=== PATIENT | female | born 1960 | race Caucasian/White ===

== ENCOUNTER 2017-10-10 00:16 | Inpatient (IN) | payer OTHER ==
[2017-10-10] VITALS (8 sets, daily range): BP systolic 138–207; BP diastolic 55–89
[~2017-10-10] VITALS: Ht 175.3 cm; Wt 106.1 kg
[~2017-10-10 00:16] MED LIST: ACETAMINOPHEN325 M1 PO; AMOXICILLIN875 MG PO; AVELOX 400 MG400 MG PO; CARAFATE 1 GM TA1 G1 PO; CIPROFLOXACIN500 M3 PO; CLEOCIN HCL150 MG PO; FLAGYL500 MG PO; IRON PO; LEXAPRO20 MG PO; LISINOPRIL10 MG PO; MYLANTA 12 OZ355 M1 PO; NEXIUM PO; NORCO 5-325 TA1 EAC1 PO; OMEPRAZOLE20 M2 PO; ZANTAC 150MG T150 M1 PO
[2017-10-10] MEDS ORDERED: LEXAPRO20 MG PO (00:24)
[2017-10-10 00:40] LABS: ABSOLUTE BASOPHILS 0.1 thou/uL (0.0-0.2); ABSOLUTE EOSINOPHILS 0.2 thou/uL (0.0-0.7); ABSOLUTE MONOCYTES 0.6 thou/uL (0.0-1.2); ABSOLUTE NEUTROPHILS 5.2 thou/uL (1.6-8.1); BASOPHILS 0.6 %; EOSINOPHILS 1.9 %; HEMATOCRIT 41.9 % (37.0-47.0); HEMOGLOBIN 14.2 gm/dL (12.0-15.0); LYMPHOCYTES 33.2 %; MCH 28.6 pg (26.0-34.0); MCHC 33.8 g/dL (28.0-37.0); MCV 84.7 fL (80.0-100.0); MONOCYTES 6.5 %; MPV 7.8 fl. (7.2-11.1); NUCLEATED RBCS 0 /100WBC; PLATELET COUNT* 331 thou/uL (150-400); POLYS 57.8 %; RBC 4.94 mil/uL (4.20-5.00); WBC 8.9 thou/uL (4.0-11.0)
[2017-10-10 00:49] LABS: ANION GAP 6 mmol/L (7-16); BUN 16 mg/dL (7-18); CALCIUM 9.8 mg/dL (8.5-10.1); CHLORIDE 105 mmol/L (98-107); CO2 32 mmol/L (21-32); CREATININE 1.2 mg/dL (0.6-1.3); GLUCOSE 102 mg/dL (70-99); POTASSIUM 3.6 mmol/L (3.5-5.1); SODIUM 143 mmol/L (136-145)
[2017-10-10 00:57] LABS: ALBUMIN 3.4 g/dL (3.4-5.0); ALKALINE PHOSPHATASE 122 U/L (46-116); SGOT 27 U/L (15-37); SGPT 50 U/L (30-65); TOTAL BILIRUBIN 0.3 mg/dL (<0.1-1.0); TOTAL PROTEIN 7.2 g/dL (6.4-8.2); TROPONIN-I LEVEL <0.06 ng/mL (<0.06)
--- NOTE | 2017-10-10 04:44 | NUR ---
RECEIVED REPORT FROM STEVE RN AT 0230, PT ARRIVED VIA GURNEY AT 0245. NURSING ASSESSMENT COMPLETED UPON ARRIVAL OF PT TO ROOM. PT DENIES PAIN, TELE MONITOR PLACED, TRACING SINUS RHYTHM. BP ELEVATED, DR. DIOP NOTIFIED AND NEW ORDERS RECEIVED. PT BP 138/59 AFTER FIRST DOSE OF IV LABETALOL. PT WEARING SCDS, DAUGHTER AT BEDSIDE, BEDSIDE SWALLOW COMPLTED, PT ABLE TO SWALLOW WITHOUT DIFFICULTY. CALL LIGHT WITHIN REACH.
--- NOTE | 2017-10-10 07:43 | NUR ---
RECEIVED REPORT. ASSUMED CARE OF PT AT 0730. VSS. CARDIAC MONTIOING IN PLACE. PT ALERT AND ORIENTED. PT ON RA. IV SALINE LOCKED. PT IS UP INDEPENDENTLY IN ROOM. PT HAS COMPLAINTS OF A HEADACHE THIS AM OTHERWISE NO OTHER COMPLAINTS OF PAIN OR DISCOMFORT. NIH NEGATIVE THIS AM. PT DENIES ANY NUMBNESS OR TINGLING. PT INFORMED OF PLAN OF CARE. PT COMMUNICATES UNDERSTANDING. CALL LIGHT IS WITHIN REACH. WILL CONTINUE TO MONTIOR FOR DURATION OF SHIFT.
--- NOTE | 2017-10-10 09:32 | NUR ---
P.T. ORDERS RECEIVED. CHART REVIEWED. NSG NOTES AND NSG INDICATE PT UP INDEP S/O DIFFICULTY OR DEFICITS NOTED. SPOKE WITH PT AND DAUGHTER. PT REPORTS UP INDEP W/O DIFFICULTY. PT HAS NO CONCERNS RE MOBILITY. REPORTS SYMPTOMS HAVE RESOLVED, EXCEPT FOR HEADACHE. NO ACUTE P.T. INTERVENTION INDICATED AT THIS TIME.
[2017-10-10 10:28] LABS: ALBUMIN 2.8 g/dL (3.4-5.0); POTASSIUM 3.1 mmol/L (3.5-5.1); TOTAL BILIRUBIN 0.4 mg/dL (<0.1-1.0); TOTAL PROTEIN 6.1 g/dL (6.4-8.2)
--- NOTE | 2017-10-10 10:55 | NUR ---
RECEIVED CONSULT FOR POSSIBLE REHAB ADMISSION. CONSULT HAS BEEN ACKNOWLEDGED BY [employer] INSTRUCTOR AND DR. YANEZ. PT IS TIA VS STROKE. NEUROLOGY CONSULT AND WORK UP PENDING. PT/OT/ST EVALUATIONS ARE PENDING. WILL FOLLOW TO SEE WHAT WORKUP SHOW AND THERAPY EVALUATIONS TO DETERMINE IF PATIENT QUALIFIES FOR ACUTE REHAB AND MAKE RECOMMENDATIONS. THANK YOU FOR THIS CONSULT.
--- NOTE | 2017-10-10 11:27 | NUR ---
CM ASSESSMENT: Pt is A&O. Resides at home with children. Independent with ADLs, continues to work outside of the home. No DME. No hx of HH or SNF. Admitted for TIA, rehab consult placed. PT signed off, Pt is independent. Pt's goal is to return home at dc. Following for dc needs.
--- NOTE | 2017-10-10 11:28 | EKG ---
[place] [address] ELECTROCARDIOGRAM REPORT Name: TROY MILLERIN SEVERIANO Room: [address] ADM IN [facility].#: [id number] Admission: 10/10/17 Attend Phys: Ab Arthur MD Discharge: Date of : 64 Report #: [id number] THIS REPORT FOR: //name// [facility] ED Test Date: 2017-10-10 Test Time: 00:30:28 Pat Name: VASU MILLER Department: Room: [facility] Gender: F Molder Fitting: VEL Jansen : 1960 Requested By: Gerald Vásquez Order Number: [id number] MD: Rashard Johnson Measurements Intervals [place] Rate: 80 P: 8 AL: 157 QRS: 10 QRSD: 92 T: 25 QT: 360 QTc: 416 Interpretive Statements Sinus rhythm Compared to ECG 04/21/2011 12:11:46 No significant changes Electronically Signed On 10-10-2017 11:28:35 FLOOR LAYER by Rsahard Johnson [email or web address] <ELECTRONICALLY SIGNED> By: Rashard Johnson MD, [facility] 10/10/17 1128 0030 0030 Rashard Johnson MD, [facility] /EPI
--- NOTE | 2017-10-10 11:38 | NUR ---
OT SCREENING: PT WITH OT EVAL ORDERS RECIEVED. PT ADMITTED WITH SYMPTOMS OF TIA/CVA WHICH HAVE RESOLVED GENERALLY. PER NURSING PT IS UP AT ABHINAV IN ROOM. WITH DISCUSSION WITH PT, PT REPORTS CONTINUED MILD TINGLING TO R HAND, HOWEVER NO OTHER PHYSICAL OR NEUROLOGICAL SYMPTOMS REPORTED. PT DEMONSTRATES ABILITY FOR AMBULATION AND ADLS WITH NO ASSIST. AT THIS TIME NO SKILLED OT IS INDICATED.
--- NOTE | 2017-10-10 15:34 | 2DMMODE ---
[place] [address] 2 D/M-MODE ECHOCARDIOGRAM Name: PAULVASUNAVJOT العلي Room: [address] ADM IN [facility]#: [id number] Admission: 10/10/17 Attend Phys: Ab Arthur, Discharge: Date of : 64 Date of Service: 10/10/17 1533 Report #: [id number] THIS REPORT FOR: //name// APPROVED REPORT Study performed: 10/10/2017 10:40:05 EXAM: Comprehensive 2D, Doppler, and color-flow Echocardiogram Patient Location: In-Patient Room #: 219 Status: routine BSA: 2.20 HR: 70 bpm BP: 140/55 mmHg Rhythm: NSR Other Information Study Quality: Good Indications CVA/TIA Echo Enhancing Agent Indication: Rule out Shunt Agent(s) / Amount(s) Used: Agitated Saline 20 cc 2D Dimensions LVEF(%): 76.19 (>50%) IVSd: 10.12 (7-11mm) LVOT Diam: 18.57 (18-24mm) LVDd: 45.31 mm PWd: 8.87 (7-11mm) Ascending Ao: 28.46 (22-36mm) LVDs: 25.02 (25-40mm) Aortic Root: 27.74 mm Perla's LVEF: 76.19 % Volumes Left Atrial Volume (Systole) LA ESV Index: 21.40 mL/m2 Aortic Valve AoV Peak Roberth.: 1.71 m/s AO Peak Gr.: 11.71 mmHg LVOT Max P.26 mmHg AO Mean Gr.: 7.17 mmHg LVOT Mean P.03 mmHg LVOT Max V: 1.52 m/s AO V2 VTI: 33.78 cm LVOT Mean V: 0.91 m/[place] [address] 2 D/M-MODE ECHOCARDIOGRAM Name: VASU MILLER Room: [address] IN .R.#: [id number] Admission: 10/10/17 Attend Phys: Ab Arthur, Discharge: Date of : 64 Date of Service: 10/10/17 1533 Report #: [id number] ANI (VTI): 2.36 cm2 LVOT V1 VTI: 29.46 cm Mitral Valve E/A Ratio: 1.27 MV Decel. Time: 240.35 ms MV E Max Roberth.: 0.78 m/s MV PHT: 69.70 ms MVA (PHT): 3.16 cm2 TDI E/Lateral E': 4.59 E/Medial E': 5.20 Medial E' Roberth.: 0.15 m/s Lateral E' Roberth.: 0.17 m/s Pulmonary Valve PV Peak Roberth.: 1.27 m/s PV Peak Gr.: 6.40 mmHg Tricuspid Valve TR Peak Gr.: 16.07 mmHg RVSP: 21.00 mmHg Left Ventricle The left ventricle is normal size. There is normal LV segmental wall motion. There is normal left ventricular wall thickness. Left ventricular systolic function is normal. The left ventricular ejection fraction is within the normal range. LVEF is 60-65%. The left ventricular diastolic function is normal. Right Ventricle The right ventricle is normal size. The right ventricular systolic function is normal. Atria The left atrium size is normal. PFO is noted. The right atrium size is normal. Aortic Valve The aortic valve is normal in structure. No aortic regurgitation is present. There is no aortic valvular stenosis. Mitral Valve The mitral valve is normal in structure. Trace mitral regurgitation. No evidence of mitral valve stenosis. Tricuspid Valve The tricuspid valve is normal in structure. Trace tricuspid regurgitation. The RVSP is ____21___ [place] [address] 2 D/M-MODE ECHOCARDIOGRAM Name: TROY MILLERNAVJOT العلي Room: [address] IN M.R.#: [id number] Admission: 10/10/17 Attend Phys: Ab Arthur, Discharge: Date of : 64 Date of Service: 10/10/17 1533 Report #: [id number] Pulmonic Valve The pulmonary valve is normal in structure. There is no pulmonic valvular regurgitation. Great Vessels The aortic root is normal in size. IVC is not well visualized. Pericardium There is no pericardial effusion. <Conclusion> LVEF is 60-65%. There is normal LV segmental wall motion. PFO is noted. There is no aortic valvular stenosis. No aortic regurgitation is present. Trace mitral regurgitation. <ELECTRONICALLY SIGNED> By: Rashard Johnson MD, FACC 10/10/17 1533 1533 1533 Rashard Johnson MD, FACC /INF
--- NOTE | 2017-10-10 18:08 | NUR ---
VSS. CARDIAC MONTIORING IN PLACE WITH NO CHANGES THIS SHIFT. PT PROGRESSING TOWARDS GOALS. PT REMAINS ON RA. IV SLAINE LOCKED. PT/PT'S DAUGHTER REQUESTED TO SPEAK WITH PT ADVOCATE TODAY. AT THAT TIME PT/FAMILY REQUESTED TO BE TRANSFERRED TO RESEARCH. PT AND FAMILY INFORMED IF ALL TESTING IS NEGATIVE PT COULD POSSIBLY BE DISCHARGED THIS EVENING. PT'S ECHO RESULTS RECEIVED AND DR. QUISPE NOTIFIED OF PFO. DR. QUISPE CAME TO SPEAK WITH PT AND FAMILY. PT AGREEABLE TO STAY TONIGHT FOR CARDIOLOGY CONSULT AND POSSIBLE CONY IN AM. PT HAS HAD CONTINUED COMPLAITNS OF HEADACHE THIS SHIFT. PT GIVEN EXCEDRIN WITH RELIEF. PT IS UP INDEPENTLY IN ROOM. NIH REMAINS NEGATIVE. PT INFORMED OF PLAN OF CARE. HOURLY ROUNDING. CALL LIGHT IS WITHIN REACH. WILL CONTINUE TO MONITOR FOR DURATION OF SHIFT.
[2017-10-10 18:11] LABS: GLYCOHEMOGLOBIN (HGB A1C) 5.4 % (4.8-5.6)
[2017-10-11] VITALS: BP 127/79; BP 145/63
[2017-10-11 04:00] VITALS: BP 146/77
--- NOTE | 2017-10-11 04:23 | NUR ---
Pt states headache she had late on day shift has resolved. Rt arm was numb on admission, but not at this time. No complaints. VSS. NIH = 0. NPO since MN for possible testing (cardiology consult). Will continue to monitor.
[2017-10-11 05:38] LABS: CHOLESTEROL 157 mg/dL (<200); HDL CHOLESTEROL 34 mg/dL (>40); LDL CHOLESTEROL 93 mg/dL (<100); TC:HDL 4.6 Ratio (Not establshd); TRIGLYCERIDE 152 mg/dL (<150); VLDL 30 mg/dL (<40)
[2017-10-11 05:43] LABS: SERUM ASSESSMENT CLEAR
[2017-10-11 09:20] VITALS: BP 146/70
--- NOTE | 2017-10-11 10:39 | CON ---
[address] [address] CONSULTATION Name: VASU MILLER Room: [address] IN .R.#: [id number] Admission: 10/10/17 Attend Phys: Ab Arthur MD Discharge: Date of : 64 Report #: [id number] THIS REPORT FOR: //name// CC: Virginia Arthur DATE OF SERVICE: 10/10/2017 HISTORY OF PRESENT ILLNESS: This is a 57-year-old female patient who was admitted with an episode where she lost her speech and she was weak and numb on the right side. The episode lasted just a few minutes. It was not associated with any headache. It came spontaneously without any trauma. She does have a history of migraine, which is longstanding, but she never gets any neurological symptoms associated with it. She was not having any more episode when I saw this patient. REVIEW OF SYSTEMS: Indicate that at one time, she had some cardiac symptoms. She was found to have vasospasms. She does not have any history of heart attack and she underwent what looks like some testing of the heart to rule out coronary artery disease. She had a gallbladder removed. She had tubal ligations in the past. She does not believe she is under a significant amount of stress. She is not on any hormones. Her last period was more than 2 years ago and she has a prior history of tubal ligation. She does have a history of depression, but that is taken care of by Lexapro. She does have mild hypertension and take lisinopril. That was a relevant 14-point review of system. PAST MEDICAL HISTORY: Positive for migraine, but she does not get neurological symptoms along with it. FAMILY HISTORY: Negative for early age stroke. SOCIAL HISTORY: She does not drink any alcohol or smoke. PHYSICAL EXAMINATION: Indicates she is alert, responsive, able to follow simple and complex command. Her speech, concentration, fund of knowledge and memory is at her baseline. Cranial nerve examination 2-12 is unremarkable. She has symmetrical strength, sensation, reflexes and strength and tone in all 4 extremities. There is no meningeal sign. There is no carotid bruit in this patient. She is a well-developed individual who does not have any dysmorphic features of eyes, ears and face. Her visions and hearing looks adequate. Her pulses are palpable. She has no edema, cyanosis or jaundice. Cardiac examination is unremarkable. Heart sounds and rhythm looks unremarkable. No respiratory difficulty or rhonchi was noticed on either side. Blood pressure is 140/55, respiration is 18, pulse is 74, temperature is 98.4. LABORATORY DATA: Last white count was normal at 8.9. [place] [id number] CONSULTATION Name: VASU MILLER SEVERIANO Room: [address] IN .R.#: [id number] Admission: 10/10/17 Attend Phys: Ab Arthur MD Discharge: Date of : 64 Report #: [id number] some blood testing done in 2011 here and they were unremarkable. 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 She needs workup to exclude the possibility of a stroke. I discussed that aspect with the patient. RECOMMENDATIONS: 1. We will get an MRI and MRA. 2. We will get a lipid profile and a sed rate. 3. We will get an echocardiogram to look for any patent foramen ovale. 4. The rest of the workup will depend upon the outcome of the above testing. She may have to be on aspirin daily depending upon the workup. All of it was discussed with the patient and she is agreeable with this plan. Thank you very much for this referral. <ELECTRONICALLY SIGNED> By: Juan Francisco Rawls MD 10/11/17 1039 0925 1220Juan Francisco Rawls MD /nt
[2017-10-11 12:26] VITALS: BP 141/64
--- NOTE | 2017-10-11 13:15 | NUR ---
NIH 0. PT C/O OF MIGRAINE AND REPORTS AT HOME TAKING [address] NOTIFIED AND RECEIVED ORDER TO INCREASE EXCEDRIN TO 2 TABS AND OKAY TO TAKE EARLY AT 11:30. PT UP AD ABHINAV. NO NUMBNESS, NO FACIAL DROOP. PT C/O OF NAUSEA (REPORTS THIS IS COMMON WITH MIGRAINE) IV ZOFRAN ADMINISTERED PER MAR WITH RELIEF. POTASSIUM ADDED TO AM LABS. K 3.3 DR NOTIFIED AND REPORTS PLACED ELYTE PROTOCOL IN ORDERS. PT NPO FOR CARDIOLOGY. CARDIOLOY SAID THEY WOULD SEE PT LATER TODAY AND THAT PT CAN EAT.
[2017-10-11 13:19] LABS: CALCIUM 9.6 mg/dL (8.5-10.1); CREATININE 0.9 mg/dL (0.6-1.3); MAGNESIUM 2.1 mg/dL (1.8-2.4); POTASSIUM 3.3 mmol/L (3.5-5.1)
[2017-10-11 16:12] VITALS: BP 148/83
[2017-10-11 20:00] VITALS: BP 151/81
[2017-10-12] VITALS: BP 146/67
[2017-10-12 04:00] VITALS: BP 1140/77; BP 140/71
[2017-10-12 05:55] LABS: HEMATOCRIT 41.6 % (37.0-47.0); HEMOGLOBIN 14.4 gm/dL (12.0-15.0); MCH 29.5 pg (26.0-34.0); MCHC 34.6 g/dL (28.0-37.0); MCV 85.4 fL (80.0-100.0); MPV 8.1 fl. (7.2-11.1); RBC 4.87 mil/uL (4.20-5.00); RDW-CV 13.2 % (10.5-14.5); WBC 8.7 thou/uL (4.0-11.0)
[2017-10-12 06:20] LABS: ALBUMIN 3.1 g/dL (3.4-5.0); CALCIUM 10.3 mg/dL (8.5-10.1); MAGNESIUM 2.1 mg/dL (1.8-2.4); TOTAL BILIRUBIN 0.4 mg/dL (<0.1-1.0); TOTAL PROTEIN 6.2 g/dL (6.4-8.2)
--- NOTE | 2017-10-12 06:41 | NUR ---
ASSUMED PATIENT CARE AT 1900. BEDSIDE REPORT REC'D. DTR AT [facility]. PATIENT SCORING 0 ON NIH. NEURO ASSESSMENT NBEGATIVE. ROOM AIR. SR ON TELE. DENIES PAIN OR OTHER NEEDS. UP TO BATHROOM AD ABHINAV. PLANS FOR DC IN AM. REVIEWED MEDS AND PURPOSES. PATIENT ABLE TO VERBALIZE PURPOSE OF MEDS PER TEACHING. HOURLY ROUNDING IN PLACE. WILL CONTINUE TO MONITOR.
[2017-10-12 08:00] VITALS: BP 148/87
--- NOTE | 2017-10-12 10:43 | NUR ---
ASSUMED PT CARE AT 0700 PT IS ALERT AND ORIENTED X 4 PT DENIES PAIN OR SOA PT IS SR ON THE MONITOR, PT IS UP AD ABHINAV PT IS NOT A FALL RISK, PT WILL DISCHARGE TODAY, PT IS COOPERATIVE AND PLEASANT, WILL CONTINUE TO MONITOR
[2017-10-12] MEDS ORDERED: LIPITOR 20 MG T20 M1 PO (11:31)
[2017-10-12] MEDS ORDERED: ASPIR 8181 MG PO (11:33)
[2017-10-12 11:34] VITALS: BP 148/87
[2017-10-12] MEDS ORDERED: NORVASC5 MG PO (11:34)
--- NOTE | 2017-10-12 13:28 | CON ---
[address] [address] CONSULTATION Name: VASU MILLER Room: [address] IN M.R.#: [id number] Admission: 10/10/17 Attend Phys: Ab Arthur MD Discharge: 10/12/17 Date of : 64 Report #: [id number] THIS REPORT FOR: //name// CC: Virginia Arthur DATE OF SERVICE: 10/11/2017 HISTORY OF PRESENT ILLNESS: The patient is a 57-year-old single white female who I was asked to see in the hospital today after she was found to have evidence of PFO. The patient has a history of hypertension. She does not exercise on a regular basis. About 2 years ago, she was having chest pain. She was referred to a acetylene torch burner over at [facility] in [place]. She apparently did not have a stress test. She apparently had a heart catheterization from the right radial artery and was told there was no significant coronary artery disease, though possible coronary artery spasm. She has done well since that time, has only rare episodes of chest pain. She was doing well until yesterday. She presented after an episode of right hand numbness, facial numbness, slurred speech. She came to the Emergency Room and was seen by Neurology. She apparently has a history of migraine headaches. She was felt to have had a TIA. Cardiology consultation was requested. The patient denies any significant syncope. She does note occasional episodes where heart rate will increase. She does get short of breath when she exerts herself and has occasional edema. PAST MEDICAL HISTORY: Significant for cholecystectomy. She has a history of hypertension, borderline hyperlipidemia. No history of diabetes. MEDICATIONS: Consist of lisinopril, omeprazole. ALLERGIES: She has no known drug allergies. FAMILY HISTORY: Significant for heart disease. SOCIAL HISTORY: She is , lives in [place]. 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 No smoking or alcohol abuse. REVIEW OF SYSTEMS: She does snore at night. No history of peptic ulcer disease, liver disease, kidney disease or cancer. She wears glasses. PHYSICAL EXAMINATION: GENERAL: Revealed a middle-aged female, appeared in no distress. VITAL SIGNS: She had a blood pressure of 140/60, pulse 70. She is afebrile. HEENT: She was anicteric, conjunctiva pink. Mucous members moist. NECK: Veins nondistended. No carotid bruits. Neck is supple. CHEST: [place] [address] CONSULTATION Name: VASU MILLER Room: [address]#: [id number] Admission: 10/10/17 Attend Phys: Ab Arthur MD Discharge: 10/12/17 Date of : 64 Report #: [id number] CARDIOVASCULAR: Regular rate and rhythm without murmur. ABDOMEN: Soft, nontender. EXTREMITIES: Had no edema. Dorsalis pedis pulse 2+ bilaterally. SKIN: Warm, dry. NEUROLOGIC: Nonfocal. LYMPH: No adenopathy. MUSCULOSKELETAL: No joint effusion. RADIOLOGICAL DATA: Her ECG shows a sinus rhythm, no ST or T-wave change. LABORATORY DATA: Sodium 144, potassium 3.3, creatinine 0.9, glucose 94. Cholesterol 157, triglyceride 152, HDL 34, LDL 93, TSH 1.9. White blood cell count 8.9, hemoglobin 14.2. She had CT scan of the head without contrast that was unremarkable. Chest x-ray, mild cardiomegaly. Carotid MRA showed no significant stenosis. MRI of the head showed no evidence of acute infarction. She had an echocardiogram done yesterday that showed normal left ventricular function. She did have a bubble study that showed evidence of small right to left shunt at the interatrial level consistent with a PFO. IMPRESSION AND RECOMMENDATIONS: 1. Transient ischemic attack. Partially related to her migraine. At this time, I would recommend antiplatelet therapy in the form of aspirin 81 mg a day. I would consider CONY. If she is found to have a patent foramen ovale and indeed she has recurrent transient ischemic attacks despite medical therapy, which would consist of aspirin or Plavix, I would consider referral for closure of the patent foramen ovale. 2. Hypertension. The patient has been on an JAIRO inhibitor. 3. Snoring at night. I would rule out sleep apnea. <ELECTRONICALLY SIGNED> By: Taran Singer MD, [facility] 10/12/17 1328 1512 2103Dhoracio Singer MD, FAC /nt
[2017-10-16 07:36] LABS: RENIN 0.589 ng/mL/hr (0.167-5.380)
== END 2017-10-12 12:09 | disposition home or self-care (01) | DRG 69 ==
LOC: M.ERS 00:16 → M.2W 01:23 → M.TBA-ER 01:23 → M.2W 02:30
PROVIDERS: Family Medicine; Internal Medicine; Psychiatry & Neurology Neuromuscular Medicine; ADMIT Internal Medicine
DX: G45.9 Transient cerebral ischemic attack, unspecified (principal); I16.1 Hypertensive emergency; Q21.1 Atrial septal defect; I10 Essential (primary) hypertension; K21.9 Gastro-esophageal reflux disease without esophagitis; F32.9 Major depressive disorder, single episode, unspecified; G43.409 Hemiplegic migraine, not intractable, without status migrainosus; R06.83 Snoring; E87.6 Hypokalemia; Z90.49 Acquired absence of other specified parts of digestive tract; Z87.01 Personal history of pneumonia (recurrent); Z79.2 Long term (current) use of antibiotics; Z79.891 Long term (current) use of opiate analgesic; Z79.899 Other long term (current) drug therapy; Z82.49 Family history of ischemic heart disease and other diseases of the circulatory system

== ENCOUNTER 2018-03-24 17:17 | Inpatient (IN) | payer OTHER ==
[~2018-03-24] VITALS: Ht 175.3 cm; Wt 111.1 kg
[~2018-03-24 17:17] MED LIST changes: +ASPIR 8181 MG PO; +LIPITOR 20 MG T20 M1 PO; +NORVASC5 MG PO
[2018-03-24 17:20] VITALS: BP 199/85
[2018-03-24] MEDS ORDERED: PLAVIX 300 MG300 M1 PO (17:25)
[2018-03-24 17:41] LABS: ABSOLUTE BASOPHILS 0.1 thou/uL (0.0-0.2); ABSOLUTE EOSINOPHILS 0.2 thou/uL (0.0-0.7); ABSOLUTE LYMPHOCYTES 2.6 thou/uL (0.8-5.3); ABSOLUTE MONOCYTES 0.9 thou/uL (0.0-1.2); ABSOLUTE NEUTROPHILS 6.9 thou/uL (1.6-8.1); BASOPHILS 1.1 %; EOSINOPHILS 2.1 %; HEMATOCRIT 44.6 % (37.0-47.0); LYMPHOCYTES 24.2 %; MCHC 33.7 g/dL (28.0-37.0); MONOCYTES 8.3 %; MPV 8.1 fl. (7.2-11.1); NUCLEATED RBCS 0 /100WBC; PLATELET COUNT* 348 thou/uL (150-400); POLYS 64.3 %; RBC 5.18 mil/uL (4.20-5.00); RDW-CV 13.2 % (10.5-14.5); WBC 10.7 thou/uL (4.0-11.0)
[2018-03-24 17:45] LABS: ANION GAP 8 mmol/L (7-16); BUN 10 mg/dL (7-18); CALCIUM 9.6 mg/dL (8.5-10.1); CHLORIDE 106 mmol/L (98-107); CO2 26 mmol/L (21-32); CREATININE 0.9 mg/dL (0.6-1.3); GLUCOSE 90 mg/dL (70-99); POTASSIUM 3.7 mmol/L (3.5-5.1); SODIUM 140 mmol/L (136-145)
[2018-03-24 17:53] LABS: PROTIME 10.1 Seconds (9.20-11.50)
[2018-03-24 17:56] LABS: ALBUMIN 3.5 g/dL (3.4-5.0); ALKALINE PHOSPHATASE 158 U/L (46-116); LIPASE 138 U/L (73-393); NT-PRO BRAIN NAT PEPTIDE 61 pg/mL (<300); SGOT 16 U/L (15-37); SGPT 32 U/L (30-65); TOTAL BILIRUBIN 0.4 mg/dL (<0.1-1.0); TOTAL PROTEIN 7.1 g/dL (6.4-8.2); TROPONIN-I LEVEL <0.06 ng/mL (<0.06)
[2018-03-24 19:28] VITALS: BP 151/63
[2018-03-24 20:00] VITALS: BP 149/86
--- NOTE | 2018-03-24 20:00 | NUR ---
PT ARRIVED TO ICU UNIT @ 1920. DENIES CHEST PAIN. ABLE TO WALK OVER TO BED WITH NO COMPLICATIONS. PT SR, HR 87, O2 99 ON 2L OXYGEN, RR 14, BP 144/86 (105). SON AT THE BEDSIDE. UPDATED PATIENT ON PLAN OF CARE. VOICED UNDERSTANDING. NO FURTHER CONCERNS AT THIS TIME.
[2018-03-25] VITALS (7 sets, daily range): BP systolic 117–148; BP diastolic 46–87
--- NOTE | 2018-03-25 06:20 | NUR ---
PATIENT PROGRESSING TOWARDS GOALS. DENIED CHEST PAIN THROUGHOUT NIGHT. DID HAVE MIGRAINE AFTER NITRO WAS GIVEN. RECIEVED ORDERS TO GIVE FIORICET BUT CRNP WAS UNABLE TO ATTAIN. DID GIVE NORCO THAT SEEMED TO HELP. PT VOIDING PER COMMODE. NO FURTHER CONCERNS AT THIS TIME.
--- NOTE | 2018-03-25 16:03 | NUR ---
PATIENT LEFT FOR NUCLEAR STRESS TEST AT 1600.
--- NOTE | 2018-03-25 16:15 | NUR ---
PATIENT ASSESSMENT HAS REMAINED UNREMARKABLE THIS SHIFT. AOX4. NSR ON MONITOR. DENIED ALL CHEST PAIN, HEADACHE SUBSIDED LAST NIGHT PER PATIENT REPORT. UP INDEPENDENTLY TO COMMODE. VOIDED 1400 THROUGHOUT SHIFT. RECORDS REQUESTS SENT TO [facility]. PATIENT STATED SHE THINKS SHE SAW A DR FRIAS. NO RECORDS HAVE BEEN RECIEVED FROM EITHER. PATIENT IN NUCLEAR STRESS TEST NOW. WILL TRANSFER TO ROOM 209 ONCE FINISHED. REPORT CALLED TO HARJIT JONES. DAUGHTER TOOK PATIENT'S BELONGINGS UP TO NEW ROOM TO WAIT FOR PATIENT.
--- NOTE | 2018-03-25 18:04 | NUR ---
PT ARRIVED TO THE FLOOR SHORTLY BEFORE 1800. PT A&O X4 CALM AND COOPERATIVE. PT HAS NO C/O PAIN OR DISTRESS, VSS TRACING ST ON THE TERADATA ARCHITECT. PT OFFERED FOOD AND DRINK AND ORIENTED TOT HE UNIT AND SERVICES. NURSING WILL CONTINUNE TO MONITOR FOR COMFORT AND SAFTEY, NO APPARENT SIGNS OF DISTRESS AT THIS TIME.
--- NOTE | 2018-03-25 20:10 | CARDNUC ---
[place] [address] CARDIAC NUCLEAR IMAGING REPORT Name: VASU MILLER Room: [address] IN [facility]#: [id number] Admission: 03/24/18 Attend Phys: José Gee, Discharge: Date of : 64 Date of Service: 03/25/182008 Report #: [id number] THIS REPORT FOR: //name// APPROVED REPORT Study performed: 03/25/2018 11:12:00 Indication: Dyspnea, Chest pain Patient Location: In-Patient Room #: ICU 6 Stress Tech: Michelle Johnston Stress Nurse: Gisele Burgess RN Ht: 5 ft 9 in Wt: 251 lbs BSA: 2.28 m2 BMI: 37.06 Medical History Medical History: Stroke/TIA, PFO, , HTN, Hyperlipidemia Medications: Nitroglycerin Allergies: No known drug allergies Cardiac Risk Factors: Age, HTN, Hyperlipidemia Previous Cardiac Procedures: PFO CLOSURE Exercise History: Sedentary Meds Held (24 hrs): Lisinopril, Amlodipine, Atorvastatin- home meds Exercise Stress At peak stress, the patient was injected intravenously with 39.6mCi of Tc-99m Sestamibi. Time of stress injection: 17:00 Date: 03/25/2018 Administration Route: IV Administration Site: Right AC Heart Rate at time of stress injection: 169 bpm. Gated Stress SPECT was performed 30 minutes after stress injection. The images were gated to evaluate regional wall motion and calculate left ventricular ejection fraction. Prone imaging was performed. Stress Test Details Stress Test: Exercise stress testing was performed using a Tez protocol. HR Max Heart Rate (APMHR): 165 bpm Resting HR: 79 bpm Target HR (85% APMHR): [place] [address] CARDIAC NUCLEAR IMAGING REPORT Name: VASU MILLER Room: [address] IN ..#: [id number] Admission: 03/24/18 Attend Phys: José Gee, Discharge: Date of : 64 Date of Service: 03/25/182008 Report #: [id number] Max HR Achieved: 169 bpm % of APMHR: 102 Recovery HR: 108 bpm HR response to stress: Normal HR response to stress BP Resting BP: 166/104 mmHg Recovery BP: 143/89 mmHg BP response to stress: Abnormal hypertensive response to stress. ECG Resting ECG: Sinus Rhythm Stress ECG: Sinus Tachycardia ST Change: None Arrhythmia: None Recovery ECG: Sinus Rhythm Recovery ST Change: None Recovery Arrhythmia: None Clinical Reason for Termination: Maximal effort Stress Symptoms: Dyspnea, Fatigue Exercise duration: 5 min 41 sec Exercise capacity: 7.05 METs Overall Exercise Capacity for Age: Normal The patient had no significant symptoms with standard Tez protocol exercise. Stress ECG Conclusion The baseline 12-lead EKG show sinus rhythm with no significant ST or T wave abnormalities. EKGs obtained during and post exercise showed sinus rhythm and sinus tachycardia with no significant ST or T wave changes Baseline. There were no significant stress-induced arrhythmias. Study Data Post stress, the left ventricular ejection was 65%.. Perfusion Post stress myocardial perfusion images show uniform uptake of the radioisotope throughout the myocardium without defect. Wall Motion Normal [place] [address] CARDIAC NUCLEAR IMAGING REPORT Name: VASU MILLER Room: [address] IN ..#: [id number] Admission: 03/24/18 Attend Phys: José Gee, Discharge: Date of : 64 Date of Service: 03/25/182008 Report #: [id number] Nuclear Conclusion ECG Findings: negative for ischemia Clinical Findings: negative for ischemia Nuclear Findings: negative for ischemia Exercise Capacity: normal Left Ventricular Function: normal Risk Study: low Myocardial perfusion images show no defect to suggest ischemia or infarct. Left ventricular systolic function appears normal on gated studies. This is a low risk study. <Conclusion> The baseline 12-lead EKG show sinus rhythm with no significant ST or T wave abnormalities. EKGs obtained during and post exercise showed sinus rhythm and sinus tachycardia with no significant ST or T wave changes Baseline. There were no significant stress-induced arrhythmias. <ELECTRONICALLY SIGNED> By: Melecio Bhatt MD, FACC 03/25/182008 08 08 Melecio Bhatt MD, FACC /INF
[2018-03-26] VITALS: BP 138/77
[2018-03-26 04:00] VITALS: BP 127/62
--- NOTE | 2018-03-26 04:07 | NUR ---
PT ALERT ORIENTED. TELEMETRY SHOWS SR. UP AD ABHINAV. PT CALLED OUT FOR PAIN MEDICATION FOR [place]. HYDROCODONE GIVEN PT RESTING WITH EYES CLOSED.
[2018-03-26 08:10] VITALS: BP 137/52
[2018-03-26 09:13] VITALS: BP 137/52
--- NOTE | 2018-03-26 10:41 | NUR ---
RECEIVED REPORT FROM XAVIER AND ASSUMED CARE OF PT @ 8126.PT IS A/O,VSS,TRACING SR ON THE MONITOR.LUNG SOUNDS ARE CLEAR.LAST BM WAS SATURDAY.IV RIGHT AC PATENT AND SALINE LOCKED.PT IS CALM AND COOPERATIVE WITH NO C/O PAIN AT TIME OF ASSESSMENT.PT IS UP AD ABHINAV IN ROOM.PT LEFT RESTING IN BED WITH CALL LIGHT IN PLACE.WILL CONTINUE TO MONITOR. PT OK FOR DISCHAGRE.PAPERWORK COMPLETED AND GIVEN TO PT.IV REMOVED.HEART MONITOR REMOVED AND RETURNED TO NURSING STATION.ALL PERSONAL BELONGINGS PACKED AND TAKEN WITH PT.WHEELED OUT BY NURSING STAFF TO PERSONAL VEHICLE.
--- NOTE | 2018-03-26 13:31 | EKG ---
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
== END 2018-03-26 10:36 | disposition home or self-care (01) | DRG 311 ==
LOC: M.ERS 17:17 → M.ICU 18:06 → M.TBA-ER 18:06 → M.ICU 19:22 → M.2W 03-25 17:52
PROVIDERS: Emergency Medicine; ADMIT Internal Medicine
DX: I20.1 Angina pectoris with documented spasm (principal); Q25.0 Patent ductus arteriosus; I10 Essential (primary) hypertension; E78.5 Hyperlipidemia, unspecified; K59.00 Constipation, unspecified; F32.9 Major depressive disorder, single episode, unspecified; K21.9 Gastro-esophageal reflux disease without esophagitis; G43.909 Migraine, unspecified, not intractable, without status migrainosus; Z82.49 Family history of ischemic heart disease and other diseases of the circulatory system; Z79.82 Long term (current) use of aspirin; Z86.73 Personal history of transient ischemic attack (TIA), and cerebral infarction without residual deficits; Z79.899 Other long term (current) drug therapy; Z87.01 Personal history of pneumonia (recurrent)

== ENCOUNTER 2019-03-28 17:18 | Emergency (ER) | payer OTHER ==
[~2019-03-28] VITALS: Ht 172.7 cm; Wt 106.6 kg
[~2019-03-28 17:18] MED LIST changes: +PLAVIX 300 MG300 M1 PO
[2019-03-28] MEDS ORDERED: CYMBALTA20 MG PO (17:42)
[2019-03-28] MEDS ORDERED: LIPITOR 20 MG T20 M1 PO (17:42)
[2019-03-28 18:11] LABS: ABSOLUTE EOSINOPHILS 0.1 thou/uL (0.0-0.7); ABSOLUTE MONOCYTES 0.9 thou/uL (0.0-1.2); ABSOLUTE NEUTROPHILS 11.2 thou/uL (1.6-8.1); BASOPHILS 0.2 %; EOSINOPHILS 0.5 %; HEMATOCRIT 40.9 % (37.0-47.0); HEMOGLOBIN 13.8 gm/dL (12.0-15.0); LYMPHOCYTES 7.9 %; MCH 28.9 pg (26.0-34.0); MCHC 33.7 g/dL (28.0-37.0); MCV 85.7 fL (80.0-100.0); MONOCYTES 6.9 %; MPV 7.8 fl. (7.2-11.1); NUCLEATED RBCS 0 /100WBC; PLATELET COUNT* 292 thou/uL (150-400); POLYS 84.5 %; RBC 4.77 mil/uL (4.20-5.00); RDW-CV 13.2 % (10.5-14.5); WBC 13.2 thou/uL (4.0-11.0)
[2019-03-28 18:19] LABS: CALCIUM 10.1 mg/dL (8.5-10.1); CREATININE 0.7 mg/dL (0.6-1.3); POTASSIUM 3.6 mmol/L (3.5-5.1)
[2019-03-28 18:24] LABS: ALBUMIN 3.1 g/dL (3.4-5.0); TOTAL PROTEIN 7.2 g/dL (6.4-8.2)
[2019-03-28] MEDS ORDERED: HYDROCODON-ACE1 EAC7 PO (18:47)
[2019-03-28] MEDS ORDERED: AUGMENTIN 500-1 EACH PO (18:47)
[2019-03-28 19:48] VITALS: BP 172/77
== END 2019-03-28 19:49 | disposition home or self-care (01) ==
LOC: M.ERS 17:18
PROVIDERS: Personal Emergency Response Attendant
DX: J34.89 Other specified disorders of nose and nasal sinuses (principal); I10 Essential (primary) hypertension; G89.18 Other acute postprocedural pain; F32.9 Major depressive disorder, single episode, unspecified; G43.909 Migraine, unspecified, not intractable, without status migrainosus; K21.9 Gastro-esophageal reflux disease without esophagitis; Z98.51 Tubal ligation status

== ENCOUNTER 2019-04-27 10:35 | Emergency (ER) | payer OTHER ==
[~2019-04-27] VITALS: Ht 172.7 cm; Wt 108.4 kg
[~2019-04-27 10:35] MED LIST changes: +AUGMENTIN 500-1 EACH PO; +CYMBALTA20 MG PO; +HYDROCODON-ACE1 EAC7 PO
[2019-04-27] MEDS ORDERED: ZANTAC 150MG T150 MG PO (10:44)
[2019-04-27] MEDS ORDERED: MULTIVITAMINS1 EAC7 PO (10:45)
[2019-04-27 10:58] LABS: ABSOLUTE BASOPHILS 0.1 thou/uL (0.0-0.2); ABSOLUTE EOSINOPHILS 0.3 thou/uL (0.0-0.7); ABSOLUTE LYMPHOCYTES 2.6 thou/uL (0.8-5.3); ABSOLUTE MONOCYTES 0.8 thou/uL (0.0-1.2); ABSOLUTE NEUTROPHILS 6.1 thou/uL (1.6-8.1); BASOPHILS 1.2 %; HEMATOCRIT 43.4 % (37.0-47.0); HEMOGLOBIN 14.5 gm/dL (12.0-15.0); LYMPHOCYTES 26.2 %; MCH 29.3 pg (26.0-34.0); MCHC 33.4 g/dL (28.0-37.0); MCV 87.8 fL (80.0-100.0); MONOCYTES 7.9 %; MPV 8.1 fl. (7.2-11.1); NUCLEATED RBCS 0 /100WBC; PLATELET COUNT* 283 thou/uL (150-400); POLYS 61.7 %; RBC 4.94 mil/uL (4.20-5.00); RDW-CV 13.7 % (10.5-14.5); WBC 9.8 thou/uL (4.0-11.0)
[2019-04-27 11:04] LABS: ANION GAP 7 mmol/L (7-16); BUN 9 mg/dL (7-18); CALCIUM 9.8 mg/dL (8.5-10.1); CHLORIDE 105 mmol/L (98-107); CO2 26 mmol/L (21-32); CREATININE 0.8 mg/dL (0.6-1.3); GLUCOSE 113 mg/dL (70-99); SODIUM 138 mmol/L (136-145)
[2019-04-27 11:22] LABS: URINE BILIRUBIN NEGATIVE (Negative); URINE BLOOD NEGATIVE (Negative); URINE CLARITY CLEAR; URINE COLOR YELLOW; URINE GLUCOSE-RANDOM NEGATIVE (Negative); URINE KETONES NEGATIVE (Negative); URINE LEUKOCYTES-REFLEX NEGATIVE (Negative); URINE NITRITE-REFLEX NEGATIVE (Negative); URINE PROTEIN NEGATIVE (Negative)
[2019-04-27 11:39] LABS: ALBUMIN 3.5 g/dL (3.4-5.0); ALKALINE PHOSPHATASE 149 U/L (46-116); SGOT 30 U/L (15-37); SGPT 34 U/L (30-65); TOTAL BILIRUBIN 0.6 mg/dL (<0.1-1.0); TOTAL PROTEIN 7.4 g/dL (6.4-8.2); TROPONIN-I LEVEL <0.06 ng/mL (<0.06)
[2019-04-27 11:40] LABS: POTASSIUM 4.2 mmol/L (3.5-5.1)
[2019-04-27] MEDS ORDERED: MECLIZINE HCL12.5 MG PO (11:50)
[2019-04-27 12:02] VITALS: BP 158/89
--- NOTE | 2019-04-27 14:52 | EKG ---
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 04/27/19 1452 1047 1047 Taran Singer MD, [facility] /EPI
== END 2019-04-27 12:03 | disposition home or self-care (01) ==
LOC: M.ERS 10:35
PROVIDERS: Nurse Practitioner Family
DX: R42 Dizziness and giddiness (principal); F41.9 Anxiety disorder, unspecified; I10 Essential (primary) hypertension; K21.9 Gastro-esophageal reflux disease without esophagitis; G43.909 Migraine, unspecified, not intractable, without status migrainosus; F32.9 Major depressive disorder, single episode, unspecified; Z98.51 Tubal ligation status; Z87.01 Personal history of pneumonia (recurrent); Z86.73 Personal history of transient ischemic attack (TIA), and cerebral infarction without residual deficits

== ENCOUNTER 2019-11-03 14:07 | Emergency (ER) | payer OTHER ==
[~2019-11-03] VITALS: Ht 175.3 cm; Wt 108.9 kg
[~2019-11-03 14:07] MED LIST changes: +MECLIZINE HCL12.5 MG PO; +MULTIVITAMINS1 EAC7 PO; +ZANTAC 150MG T150 MG PO
[2019-11-03] MEDS ORDERED: CYMBALTA60 MG PO (14:21)
[2019-11-03] MEDS ORDERED: QUETIAPINE FUM150 MG PO (14:21)
[2019-11-03] MEDS ORDERED: ZANAFLEX4 MG PO (15:52)
[2019-11-03] MEDS ORDERED: NABUMETONE 750750 M1 PO (15:52)
[2019-11-03 16:03] VITALS: BP 167/84
== END 2019-11-03 16:04 | disposition home or self-care (01) ==
LOC: M.ERS 14:07
DX: S29.012A Strain of muscle and tendon of back wall of thorax, initial encounter (principal); S16.1XXA Strain of muscle, fascia and tendon at neck level, initial encounter; S20.211A Contusion of right front wall of thorax, initial encounter; S09.8XXA Other specified injuries of head, initial encounter; I10 Essential (primary) hypertension; K21.9 Gastro-esophageal reflux disease without esophagitis; G43.909 Migraine, unspecified, not intractable, without status migrainosus; Z86.73 Personal history of transient ischemic attack (TIA), and cerebral infarction without residual deficits; Z98.51 Tubal ligation status; Z87.01 Personal history of pneumonia (recurrent); V89.2XXA Person injured in unspecified motor-vehicle accident, traffic, initial encounter; Y93.89 Activity, other specified; Y92.89 Other specified places as the place of occurrence of the external cause; Y99.8 Other external cause status

== ENCOUNTER 2021-01-17 13:39 | Emergency (ER) | payer OTHER ==
[~2021-01-17] VITALS: Ht 172.7 cm; Wt 111.1 kg
[~2021-01-17 13:39] MED LIST changes: +CYMBALTA60 MG PO; +NABUMETONE 750750 M1 PO; +QUETIAPINE FUM150 MG PO; +ZANAFLEX4 MG PO
[2021-01-17] MEDS ORDERED: ASA81BEC PO (13:49)
[2021-01-17] MEDS ORDERED: BUSPIRONE HCL10 MG PO (13:50)
[2021-01-17 14:01] LABS: ABSOLUTE BASOPHILS 0.1 thou/uL (0.0-0.2); ABSOLUTE EOSINOPHILS 0.2 thou/uL (0.0-0.7); ABSOLUTE LYMPHOCYTES 2.4 thou/uL (0.8-5.3); ABSOLUTE MONOCYTES 0.7 thou/uL (0.0-1.2); ABSOLUTE NEUTROPHILS 6.5 thou/uL (1.6-8.1); BASOPHILS 0.7 %; HEMATOCRIT 42.5 % (37.0-47.0); HEMOGLOBIN 14.5 gm/dL (12.0-15.0); LYMPHOCYTES 24.7 %; MCH 29.7 pg (26.0-34.0); MCHC 34.2 g/dL (28.0-37.0); MCV 86.8 fL (80.0-100.0); MPV 7.6 fl. (7.2-11.1); NUCLEATED RBCS 0 /100WBC; PLATELET COUNT* 343 thou/uL (150-400); POLYS 65.6 %; RBC 4.89 mil/uL (4.20-5.00); RDW-CV 13.2 % (10.5-14.5); WBC 9.9 thou/uL (4.0-11.0)
[2021-01-17 14:10] LABS: CALCIUM 9.6 mg/dL (8.5-10.1); CREATININE 0.8 mg/dL (0.6-1.3); POTASSIUM 3.7 mmol/L (3.5-5.1)
[2021-01-17 14:13] LABS: APTT 25.1 Seconds (25.0-31.3); PROTIME 10.3 Seconds (9.20-11.50)
[2021-01-17 14:23] LABS: ALBUMIN 3.6 g/dL (3.4-5.0); CK-MB MASS 0.6 ng/mL (<0.5-3.6); MAGNESIUM 2.1 mg/dL (1.8-2.4); TOTAL BILIRUBIN 0.8 mg/dL (<0.1-1.0); TOTAL PROTEIN 7.3 g/dL (6.4-8.2)
[2021-01-17 16:14] VITALS: BP 142/54
--- NOTE | 2021-01-17 16:14 | EKG ---
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
== END 2021-01-17 16:14 | disposition home or self-care (01) ==
LOC: M.ERS 13:39
PROVIDERS: Family Medicine
DX: R07.89 Other chest pain (principal); I10 Essential (primary) hypertension; K21.9 Gastro-esophageal reflux disease without esophagitis; G43.909 Migraine, unspecified, not intractable, without status migrainosus; Z98.51 Tubal ligation status; Z87.01 Personal history of pneumonia (recurrent); Z86.73 Personal history of transient ischemic attack (TIA), and cerebral infarction without residual deficits